=== PATIENT | female | born 1960 | race Two or more races ===

== ENCOUNTER 2018-05-16 17:33 | Emergency (ER) | payer OTHER ==
[~2018-05-16] VITALS: Ht 154.9 cm; Wt 67.6 kg
== END 2018-05-16 19:50 | disposition home or self-care (01) ==
LOC: ER 17:33
DX: S31.811A Laceration without foreign body of right buttock, initial encounter (principal); W45.8XXA Other foreign body or object entering through skin, initial encounter; Y93.89 Activity, other specified; Y92.89 Other specified places as the place of occurrence of the external cause; Y99.8 Other external cause status

== ENCOUNTER 2018-05-24 00:04 | Emergency (ER) | payer OTHER ==
[~2018-05-24] VITALS: Ht 154.9 cm; Wt 67.1 kg
[~2018-05-24 00:04] MED LIST: ATENOLOL25 MG; LEXAPRO5 MG
[2018-05-24] MEDS ORDERED: CLONAZEPAM0.5 M1 (00:08)
== END 2018-05-24 03:02 | disposition home or self-care (01) ==
LOC: ER 00:04
DX: I10 Essential (primary) hypertension (principal); M94.0 Chondrocostal junction syndrome [Tietze]; F06.4 Anxiety disorder due to known physiological condition

== ENCOUNTER 2018-09-12 20:06 | Emergency (ER) | payer OTHER ==
[~2018-09-12] VITALS: Ht 160 cm; Wt 67.6 kg
[~2018-09-12 20:06] MED LIST changes: +CLONAZEPAM0.5 M1
[2018-09-13] MEDS ORDERED: TOPROL XL25 M1 PO (05:27)
== END 2018-09-13 05:40 | disposition home or self-care (01) ==
LOC: ER 20:06
DX: I16.0 Hypertensive urgency (principal); I10 Essential (primary) hypertension

== ENCOUNTER 2019-10-12 22:53 | Emergency (ER) | payer OTHER ==
[~2019-10-12] VITALS: Ht 154.9 cm; Wt 66.7 kg
[~2019-10-12 22:53] MED LIST changes: +TOPROL XL25 M1 PO
[2019-10-12] MEDS ORDERED: [UNRECOGNIZED DRUG - OTHER] (23:01)
== END 2019-10-13 03:07 | disposition home or self-care (01) ==
LOC: ER 22:53
DX: R07.89 Other chest pain (principal); F06.4 Anxiety disorder due to known physiological condition

== ENCOUNTER 2019-10-17 10:18 | Outpatient (CLI) | payer OTHER ==
[~2019-10-17 10:18] MED LIST changes: +[UNRECOGNIZED DRUG - OTHER]
== END 2019-10-17 13:33 | disposition home or self-care (01) ==
LOC: NUCLEAR 10:18
DX: I20.1 Angina pectoris with documented spasm (principal)